=== PATIENT | female | born 1955 | race Caucasian/White ===

== ENCOUNTER 2017-01-11 05:19 | Day surgery (SDC) | payer OTHER ==
[~2017-01-11 05:19] MED LIST: ASA5GR PO; DCN100 PO; FLEX PO; LINZESS 290 M290 MCG PO; LORTAB10 PO; MEDROLPAK4 PO; OTC LAXATIVE PO; PCET PO; PERCOCET1 TA4 PO; SENNA PO; SYN1 PO; SYN112 PO; V2 PO; V5 PO; VASOTEC20 MG PO
== END 2017-01-11 08:00 | disposition home or self-care (01) ==
LOC: SDC 05:19
PROVIDERS: Orthopaedic Surgery
PROC: 3E0R3BZ Introduction of Anesthetic Agent into Spinal Canal, Percutaneous Approach (ICD-10-PCS; 2017-01-11)
PROC: B01BYZZ Fluoroscopy of Spinal Cord using Other Contrast (ICD-10-PCS; 2017-01-11)
PROC: 3E0R33Z Introduction of Anti-inflammatory into Spinal Canal, Percutaneous Approach (ICD-10-PCS; principal; 2017-01-11 07:15)
DX: M54.16 Radiculopathy, lumbar region (principal); I10 Essential (primary) hypertension; E03.9 Hypothyroidism, unspecified; M19.90 Unspecified osteoarthritis, unspecified site; Z90.49 Acquired absence of other specified parts of digestive tract; Z90.710 Acquired absence of both cervix and uterus; Z98.890 Other specified postprocedural states
CPT/HCPCS: J1040; J2250; J2405; J3010; Q9967